=== PATIENT | female | born 1955 | race Caucasian/White ===

== ENCOUNTER → 2019-08-14 08:53 | Outpatient (BNVA) | payer MEDICARE, MEDICAID, SELFPAY | PROVIDERS: Family Provider Family Medicine; PCP Family Medicine; Visit Provider Nurse Practitioner | DX: F33.2 Major depressive disorder, recurrent severe without psychotic features (principal); R41.83 Borderline intellectual functioning; F42.3 Hoarding disorder | CPT/HCPCS: 99214 ==

== ENCOUNTER → 2019-08-23 12:00 | Outpatient (BNVA) | payer MEDICARE, MEDICAID, SELFPAY | PROVIDERS: Family Provider Family Medicine; PCP Family Medicine; Visit Provider Nurse Practitioner Family | DX: E78.5 Hyperlipidemia, unspecified (principal); K21.9 Gastro-esophageal reflux disease without esophagitis; F42.3 Hoarding disorder; R41.83 Borderline intellectual functioning; F33.2 Major depressive disorder, recurrent severe without psychotic features; J01.90 Acute sinusitis, unspecified | CPT/HCPCS: 80053; 80061; 81003; 85025 ==

== ENCOUNTER 2019-09-17 11:27 | Outpatient (CLI) | payer MEDICARE, MEDICAID, SELFPAY ==
--- NOTE | 2019-09-17 11:29 | MM_ITS ---
WS: [id number] Bilateral diagnostic digital mammogram, 09/17/2019 Clinical Data: HX OF BREAST CA Comparison: 10/24/2017, 09/28/2016, 04/14/2015, 01/29/2013, 09/18/2010, 05/21/2009. Findings: There is a spiculated density in the upper aspect of the right breast seen best on the RML view. This is not well defined on the MLO or the cc view. There are post treatment changes in the left breast w ith loss of breast volume and thickening of the overlying skin. There are large benign calcifications in the central left breast. Both breasts show heterogeneous density. MM/[place] [id number] Impression: 1. Recommend compression view of the right breast in the CC and ML projections along with ultrasound of the superior aspect of the right breast. 2. No change in the left breast from previous studies. BIRADS: 0-Incomplete: Need additional imaging evaluation FOLLOW UP: 1 Month Follow-up The CAD wrapping checker was used.
== END 2019-09-17 11:28 | disposition home or self-care (01) ==
LOC: RADSHAW 11:27
PROVIDERS: Family Provider Family Medicine; PCP Nurse Practitioner Family; Visit Provider Nurse Practitioner Family
DX: Z85.3 Personal history of malignant neoplasm of breast (principal)
CPT/HCPCS: 77066

== ENCOUNTER 2019-10-11 08:25 | Outpatient (CLI) | payer MEDICARE, MEDICAID, SELFPAY ==
--- NOTE | 2019-10-11 08:30 | MM_ITS ---
WS: [id number] ADDITIONAL VIEWS RIGHT BREAST RIGHT breast ultrasound, limited HISTORY: abnormal mammogram COMPARISON: 09/17/2019, 10/24/2017 and 09/28/2016 Compression views right CC and MLO projection. True ML also submitted. Mild asymmetry in the central posterior RIGHT breast persists. The spiculated nodule on the prior study nearly completely resolves and the soft tissues become nearly similar to the studies from 2017. RIGHT breast ultrasound, limited. Ultrasound is directed to the upper outer quadrant of the RIGHT javier ast and to focus on 12:00. There is a bandlike area of dense fibroglandular tissue. No mass or distor tion. No solid or cystic changes. MM/[place] [id number] IMPRESSION: BI-RADS: 2-Benign FOLLOW-UP: 1 Year Follow-up
--- NOTE | 2019-10-11 09:30 | US_ITS ---
WS: [id number] ADDITIONAL VIEWS RIGHT BREAST RIGHT breast ultrasound, limited HISTORY: abnormal mammogram COMPARISON: 09/17/2019, 10/24/2017 and 09/28/2016 Compression views right CC and MLO projection. True ML also submitted. Mild asymmetry in the central posterior RIGHT breast persists. The spiculated nodule on the prior study nearly completely resolves and the soft tissues become nearly similar to the studies from 2017. RIGHT breast ultrasound, limited. Ultrasound is directed to the upper outer quadrant of the RIGHT javier ast and to focus on 12:00. There is a bandlike area of dense fibroglandular tissue. No mass or distor tion. No solid or cystic changes. US/US breast RT limited* [id number] IMPRESSION: BI-RADS: 2-Benign FOLLOW-UP: 1 Year Follow-up
== END 2019-10-11 08:26 | disposition home or self-care (01) ==
LOC: RADSHAW 08:25
PROVIDERS: Family Provider Family Medicine; PCP Nurse Practitioner Family; Visit Provider Nurse Practitioner Family
DX: R92.8 Other abnormal and inconclusive findings on diagnostic imaging of breast (principal)
CPT/HCPCS: 76642; 77065

== ENCOUNTER → 2019-11-07 08:33 | Outpatient (BNVA) | payer MEDICARE, MEDICAID, SELFPAY | PROVIDERS: Family Provider Family Medicine; PCP Nurse Practitioner Family; Visit Provider Nurse Practitioner | DX: F33.2 Major depressive disorder, recurrent severe without psychotic features (principal); R41.83 Borderline intellectual functioning | CPT/HCPCS: 99213 ==

== ENCOUNTER → 2020-01-08 16:32 | Outpatient (BNVA) | payer MEDICARE, MEDICAID, SELFPAY | PROVIDERS: PCP Nurse Practitioner Family; Visit Provider Nurse Practitioner Family | DX: G25.81 Restless legs syndrome (principal); E78.5 Hyperlipidemia, unspecified; M25.561 Pain in right knee; M25.562 Pain in left knee; G89.29 Other chronic pain; R29.6 Repeated falls; R35.0 Frequency of micturition; R60.9 Edema, unspecified; Z79.899 Other long term (current) drug therapy | CPT/HCPCS: 80053; 80061; 81003; 82306; 82607; 82728; 85025; 87086 ==

== ENCOUNTER → 2020-02-18 11:30 | Outpatient (BNVA) | payer MEDICARE, MEDICAID, SELFPAY | PROVIDERS: PCP Nurse Practitioner Family; Visit Provider Nurse Practitioner Family | DX: R74.8 Abnormal levels of other serum enzymes (principal) | CPT/HCPCS: 82607; 82728; 85025 ==

== ENCOUNTER → 2020-02-28 16:15 | Outpatient (BNVA) | payer MEDICARE, MEDICAID, SELFPAY | PROVIDERS: PCP Nurse Practitioner Family; Visit Provider Nurse Practitioner Family | DX: E78.5 Hyperlipidemia, unspecified (principal); R74.8 Abnormal levels of other serum enzymes | CPT/HCPCS: 85025 ==

== ENCOUNTER → 2020-02-29 08:24 | Outpatient (BNVA) | payer MEDICARE, MEDICAID, SELFPAY | PROVIDERS: PCP Nurse Practitioner Family; Visit Provider Nurse Practitioner | DX: F33.2 Major depressive disorder, recurrent severe without psychotic features (principal); R41.83 Borderline intellectual functioning | CPT/HCPCS: 99214 ==

== ENCOUNTER → 2020-03-04 10:41 | Outpatient (BNVA) | payer MEDICARE, MEDICAID, SELFPAY | PROVIDERS: PCP Nurse Practitioner Family; Visit Provider Nurse Practitioner Family | DX: E87.1 Hypo-osmolality and hyponatremia (principal) | CPT/HCPCS: 80048 ==

== ENCOUNTER 2020-03-16 13:51 | Emergency (ER) | payer MEDICARE, MEDICAID, SELFPAY ==
[2020-03-16 14:04] VITALS: BP 112/59; PULSE 72; RESP 16; TEMP 36.3; O2SAT 96; BMI 27.4
--- NOTE | 2020-03-16 14:27 | XRR_ITS ---
PROCEDURE INFORMATION: Exam: XR Chest, 1 View Exam date and time: 03/16/2020 2:28 PM Age: 64 years old Clinical indication: Cough and dyspnea and fever; Additional info: Dyspnea, fever, cough TECHNIQUE: Imaging protocol: XR of the chest Views: 1 view. COMPARISON: CR Chest 1 [place] [id number] 03/16/2019 12:15 PM FINDINGS: Lungs: Unremarkable. No consolidation. Pleural space: Unremarkable. No pleural effusion. No pneumothorax. Heart/Mediastinum: Unremarkable. No cardiomegaly. Bones/joints: Unremarkable. XR/XR chest 1V portable [id number] IMPRESSION: No acute findings.
[2020-03-16 14:56] LABS: Basophils % 0.3 %; Eosinophils % 0.2 %; Hematocrit 32.9 % (37.0-47.0); Lymphocytes # 0.8 10^3/uL (0.8-4.8); Mean Corpuscular HGB Conc 33.4 g/dL (30.0-36.0); Mean Corpuscular Hemoglobin 33.6 pg (28.0-34.0); Mean Corpuscular Volume 100.6 fL (81-99); Mean Platelet Volume 8.1 fL (7.4-10.4); Monocytes # 0.9 10^3/uL (0.2-0.9); Monocytes % 14.9 %; Neutrophils # 4.51 10^3/uL (1.8-7.7); Neutrophils % 72.3 %; Nucleated Red Blood Cells % 0 %; Platelet Count 150 10^3/cmm (130-400); Red Blood Count 3.27 10^6/uL (4.1-5.3); Red Cell Distribution Width 13.1 % (12.1-15.1); White Blood Count 6.2 10^3/uL (4.0-10.0)
--- NOTE | 2020-03-16 14:58 | W.ED.GENADLT ---
HPI - General Adult General: Chief complaint: General Medical Stated complaint: POSS COVID Time Seen by Provider: 03/16/20 14:12 History of Present Illness: HPI narrative: This patient is a 64-year-old female who presents today with cough, fever, body aches, diarrhea. She has developmental delays and intellectual disabilities and lives in an IR with a roommate. The staff member came this morning and found her to be complaining of feeling poorly. The symptoms mostly started this morning but she did complain of muscle aches last night before bedtime. She had a dose of Tylenol at about 745 when her temperature was 102.8. There is no known exposures to COVID. She also has had other medical history including different types of cancer, ear problems, reflux. She is here today with her newspaper or periodical editor and her sister who is her guardian was on the phone with us as well. Onset (ago): day(s) (1) Associated symptoms: Reports dyspnea, malaise and nausea; Deny chest pain, headache(s), rash or vomiting Review of Systems General: Reports: 10 or more systems reviewed and unremarkable except in HPI and below Const: Reports: fever(s), chills, fatigue and malaise Eyes: Denies: change in vision ENMT: Denies: odynophagia Card: Denies: chest pain or swelling of feet/ankles Resp: Reports: dyspnea and non-productive cough GI: Reports: nausea and diarrhea; Denies: abdominal pain or vomiting : Denies: flank pain or difficulty voiding Musc: Denies: neck pain or back pain Skin/Breast: Denies: rash Neuro: Denies: headache(s), numbness in extremities or weakness in extremities Hayder/Lymph: Denies: easy bruising or easy bleeding PFSH ED PFSH: Medical History Anxiety Basal cell carcinoma Borderline intellectual functioning GERD (gastroesophageal reflux disease) Hoarding disorder Hyperlipemia Intermittent explosive disorder Intraductal carcinoma in situ Kidney stones Major depressive disorder, recurrent severe without psychotic features Malignant neoplasm of kidney Postmenopausal Psychiatric disorder Schatzki's ring Vaginal atrophy Vitamin D deficiency Surgical History History of nephrectomy, right Family History Father Dementia Parkisons CAD (coronary artery disease) Diabetes Mother CAD (coronary artery disease) Social History Smoking and tobacco status: never smoked Second hand smoke exposure: No Alcohol intake: never Lives independently: No Household members: caregiver Housing: Other Details: [facility] Marital status: Single Current occupational status: disabled Current occupational exposures/hazards: No History of recent travel: No Current gender identity: Female Physical Exam Const: COMMON NORMALS: no acute distress, patient oriented x3, no limitations and alert GENERAL APPEARANCE: cooperative and comfortable HENMT: HEAD & SCALP: normal to inspection FACE & SINUS: normal facial exam Eye: GENERAL EYE: appearance normal, both eyes and all related structures Neck/C-Spine: COMMON NORMALS: supple, no meningeal signs and no JVD Chest: COMMONS NORMALS: normal inspection of the chest Resp: COMMON NORMALS: normal respiratory effort, No use of accessory muscles and clear to auscultation bilaterally AUSCULTATION: clear to auscultation bilaterally Cardio: COMMON NORMALS: no JVD, regular rate, regular rhythm and No murmurs present (Cardio) RATE: regular rate RHYTHM: regular rhythm GI: COMMON NORMALS: Normal to inspection, nondistended, normoactive bowel sounds present, Soft to palpation and non-tender INSPECTION: Yes normal to inspection AUSCULTATION: Yes normoactive bowel sounds PALPATION: Yes Soft to palpation Back/Pelvis: COMMON NORMALS: thoracic and lumbar spine normal to inspection Extremity: COMMON NORMALS: normal to inspection Neuro: COMMON NORMALS: patient oriented x3, moves all extremities, no focal motor deficits and no sensory deficits noted SENSORIUM/ORIENTATION: Yes alert MENINGEAL SIGNS: Yes no meningeal signs Psych: COMMON NORMALS: mental status grossly normal, cooperative and normal affect Skin: COMMON NORMALS: no rashes or lesions noted and turgor normal GENERAL SKIN EXAM: no rashes or lesions noted and turgor normal Course ED course: Patient does have symptoms which are concerning for COVID. Her room air sat is 97%. She does not appear dyspneic. Her main complaint is muscle aches. She was afebrile at triage but it is been a while since she had her first dose of Tylenol today and I will give her another for her muscle aches. Chest x-ray and labs are pending. Do not think she is going to need to be admitted some doing a quest send out test for COVID. She, her roommate and the staff members who have cared for her will need to self quarantine until that is back. Vital Signs: Vital signs: Vital Signs Temperature 97.3 F L 03/16/20 14:04 Pulse Rate 70 03/16/20 16:23 Respiratory Rate 15 03/16/20 16:23 Blood Pressure 110/75 03/16/20 16:23 Pulse Oximetry 97 03/16/20 16:23 MDM - General Adult Lab Data: Labs: Lab Results 03/16/20 03/16/20 03/16/20 Range/Units 14:47 14:47 14:47 WBC 6.2 (4.0-10.0) 10^3/ uL RBC 3.27 L (4.1-5.3) 10^6/u L Hgb 11.0 L (11.5-15.3) g/dL Hct 32.9 L (37.0-47.0) % MCV 100.6 H (81-99) fL MCH 33.6 (28.0-34.0) pg MCHC 33.4 (30.0-36.0) g/dL RDW 13.1 (12.1-15.1) % Plt Count 150 (130-400) 10^3/c mm MPV 8.1 (7.4-10.4) fL Neut % (Auto) 72.3 % Lymph % (Auto) 12.0 % King % (Auto) 14.9 % Eos % (Auto) 0.2 % Baso % (Auto) 0.3 % Neut # (Auto) 4.51 (1.8-7.7) 10^3/u L Lymph # (Auto) 0.8 (0.8-4.8) 10^3/u L King # (Auto) 0.9 (0.2-0.9) 10^3/u L Eos # (Auto) 0.0 (0.0-0.8) 10^3/u L Baso # (Auto) 0.0 (0.0-0.1) 10^3/u L Nucleated RBC % (a uto) 0 % Nucleated RBCs # 0.0 /100WBC D-Dimer 0.82 H (0-0.59) ug/mIFE U Sodium 131 L (136-145) mmol/L Potassium 3.7 (3.5-5.1) mmol/L Chloride 96 L (98-107) mmol/L Carbon Dioxide 25 (22-29) mmol/L Anion Gap 13.7 (5-19) BUN 19 (8-23) mg/dL Creatinine 0.8 (0.5-0.9) mg/dL GFR Calculation 71.8 L (90-130) mL/min Glucose 110 (65-115) mg/dL Calculated Osmolal ity 269 L (285-295) mOsm/k g Calcium 8.2 L (8.5-10.5) mg/dL Total Bilirubin 0.2 (0.15-1.2) mg/dL AST 21 (0-32) U/L ALT 22 (0-33) U/L Alkaline Phosphata se 62 (35-105) IU/L C-Reactive Protein 42.4 H (0.0-4.9) mg/L Total Protein 6.0 L (6.6-8.7) g/dL Albumin 3.7 (3.5-5.2) g/dL Globulin 2.3 (1.3-4.6) g/dL Procalcitonin 0.10 (0-0.5) ng/mL Urine Color (Yellow) Urine Appearance (CLEAR) Urine pH (5-7) Ur Specific Gravit y (1.005-1.030) Urine Protein (Negative) Urine Glucose (UA) (Normal) Urine Ketones (Negative) Urine Blood (Negative) Urine Nitrate (Negative) Urine Bilirubin (Negative) Urine Urobilinogen (Negative) mg/dL Ur Leukocyte Richelle ase (Negative) Urine RBC (0-2) /hpf Urine WBC (0-5) /hpf Ur Squamous Epith Cells (0-5) /hpf Amorphous Sediment Urine Bacteria (NONE) /hpf 03/16/20 Range/Units 15:04 WBC (4.0-10.0) 10^3/ uL RBC (4.1-5.3) 10^6/u L Hgb (11.5-15.3) g/dL Hct (37.0-47.0) % MCV (81-99) fL MCH (28.0-34.0) pg MCHC (30.0-36.0) g/dL RDW (12.1-15.1) % Plt Count (130-400) 10^3/c mm MPV (7.4-10.4) fL Neut % (Auto) % Lymph % (Auto) % King % (Auto) % Eos % (Auto) % Baso % (Auto) % Neut # (Auto) (1.8-7.7) 10^3/u L Lymph # (Auto) (0.8-4.8) 10^3/u L King # (Auto) (0.2-0.9) 10^3/u L Eos # (Auto) (0.0-0.8) 10^3/u L Baso # (Auto) (0.0-0.1) 10^3/u L Nucleated RBC % (a uto) % Nucleated RBCs # /100WBC D-Dimer (0-0.59) ug/mIFE U Sodium (136-145) mmol/L Potassium (3.5-5.1) mmol/L Chloride (98-107) mmol/L Carbon Dioxide (22-29) mmol/L Anion Gap (5-19) BUN (8-23) mg/dL Creatinine (0.5-0.9) mg/dL GFR Calculation (90-130) mL/min Glucose (65-115) mg/dL Calculated Osmolal ity (285-295) mOsm/k g Calcium (8.5-10.5) mg/dL Total Bilirubin (0.15-1.2) mg/dL AST (0-32) U/L ALT (0-33) U/L Alkaline Phosphata se (35-105) IU/L C-Reactive Protein (0.0-4.9) mg/L Total Protein (6.6-8.7) g/dL Albumin (3.5-5.2) g/dL Globulin (1.3-4.6) g/dL Procalcitonin (0-0.5) ng/mL Urine Color Yellow (Yellow) Urine Appearance Clear (CLEAR) Urine pH 7 (5-7) Ur Specific Gravit y 1.005 (1.005-1.030) Urine Protein Neg (Negative) Urine Glucose (UA) Norm (Normal) Urine Ketones Negative (Negative) Urine Blood 2+ H (Negative) Urine Nitrate Negative (Negative) Urine Bilirubin Neg (Negative) Urine Urobilinogen Norm (Negative) mg/dL Ur Leukocyte Irchelle ase Negative (Negative) Urine RBC 0-4 H (0-2) /hpf Urine WBC None (0-5) /hpf Ur Squamous Epith Cells Rare (0-5) /hpf Amorphous Sediment Not Reportable Urine Bacteria Trace (NONE) /hpf Discharge Plan Discharge Patient Disposition: Home Clinical Impression: Upper respiratory infection, viral, COVID-19 virus test result unknown Condition: Stable Prescriptions: No Action PrePlus 27 mg iron- 1 mg tablet 1 tab PO QDAY RF: 0 polyethylene glycol 3350 [Miralax] 17 gram powder in packet 17 gm PO QDAY RF: 0 (DME) comp.stocking,knee,long,medium Misc See Rx Instructions .ROUTE .MEDSUPPLY Qty: 1 RF: 0 pantoprazole [Protonix] 40 mg tablet,delayed release (DR/EC) 40 mg PO QDAY Qty: 30 RF: 5 atorvastatin 20 mg tablet 20 mg PO QDAY Qty: 30 RF: 5 acetaminophen 500 mg tablet 500 mg PO Q6H PRN (Reason: fever or pain) Qty: 120 RF: 3 cholecalciferol (vitamin D3) 25 mcg (1,000 unit) capsule 2,000 unit PO QDAY Qty: 60 RF: 5 ropinirole 1 mg tablet See Rx Instructions .ROUTE .COMPLEX Qty: 90 RF: 5 meloxicam 15 mg tablet See Rx Instructions .ROUTE .COMPLEX Qty: 30 RF: 5 fluoxetine 40 mg capsule 40 mg PO QAM Qty: 30 RF: 2 lorazepam 0.5 mg tablet 0.25 mg PO TID Qty: 45 RF: 2 oxcarbazepine 150 mg tablet 150 mg PO BID Qty: 60 RF: 2 potassium citrate 10 mEq (1,080 mg) Tablet Extended Release 10 meq PO BID RF: 0 diclofenac sodium 1 % gel See Rx Instructions .ROUTE .COMPLEX RF: 0 [place] D See Rx Instructions .ROUTE .COMPLEX RF: 0 Discharge Orders: Discharge Order (Routine); Ordered 03/16/20 Ordered By: Lisa Duran Referrals: Susan Espinal FNP [Primary Care Provider] - Discharge Diet: Usual diet Discharge Activity: Resume usual activity Patient Instructions: Upper Respiratory Infection (ED) Activity Restrictions/Additional Instructions: Continue Tylenol for fever and body aches. Return to the emergency department if increasing shortness of breath, vomiting, changes in behavior or any other new or concerning symptoms. The COVID test will take a few days to result. Someone will contact you whether it is positive or negative. You and anyone has had contact with you recently should self quarantine until the results of the test are available. Discharge Date/Time: 03/16/20 16:24 Coding Level of Care Code ED Clinic Office Assistant for [place] Fwd Exam Comprehensive
[2020-03-16 15:22] LABS: D Dimer 0.82 ug/mIFEU (0-0.59)
[2020-03-16 15:26] LABS: Add Urine Microscopic? YES; Bilirubin Urine Neg (Negative); Blood Urine 2+ (Negative); Glucose Urine UA Norm (Normal); Ketones Urine Negative (Negative); Leukocyte Esterase Urine Negative (Negative); Nitrate Urine Negative (Negative); Protein Urine Neg (Negative); Specific Gravity, Urine 1.005 (1.005-1.030); Urine Appearance Clear (CLEAR); Urine Color Yellow (Yellow); Urobilinogen Urine Norm (Negative); pH Urine 7 (5-7)
[2020-03-16 15:28] LABS: Add Urine Culture? No; Bacteria Urine TRACE /hpf; RBC Urine 0-4 /hpf (0-2); Squamous Epithelial Cell Urine RARE /hpf (0-5)
[2020-03-16 15:43] LABS: Alanine Aminotransferase 22 U/L (0-33); Albumin Level 3.7 g/dL (3.5-5.2); Alkaline Phosphatase 62 IU/L (35-105); Anion Gap 13.7 (5-19); Aspartate Amino Transferase 21 U/L (0-32); Blood Urea Nitrogen 19 mg/dL (8-23); C Reactive Protein 42.4 mg/L (0.0-4.9); Calcium 8.2 mg/dL (8.5-10.5); Carbon Dioxide 25 mmol/L (22-29); Chloride 96 mmol/L (98-107); Globulin 2.3 g/dL (1.3-4.6); Glomerular Filtration Rate 71.8 mL/min (90-130); Glucose 110 mg/dL (65-115); Osmolality Calculated 269 mOsm/kg (285-295); Potassium 3.7 mmol/L (3.5-5.1); Sodium 131 mmol/L (136-145); Total Bilirubin 0.2 mg/dL (0.15-1.2)
[2020-03-16 16:23] VITALS: BP 110/75; PULSE 70; RESP 15; O2SAT 97
[2020-03-17 19:32] LABS: Quest SARS-CoV-2 RNA DETECTED (NOT DETECTED)
== END 2020-03-16 16:24 | disposition home or self-care (01) ==
PROVIDERS: Emergency Provider Emergency Medicine; PCP Nurse Practitioner Family
DX: U07.1 COVID-19 (principal); E78.5 Hyperlipidemia, unspecified; Z85.528 Personal history of other malignant neoplasm of kidney; Z90.5 Acquired absence of kidney
CPT/HCPCS: 12345; 36415; 51701; 71045; 80053; 81001; 84145; 85025; 85378; 86140; 87635; 99282; 99283

== ENCOUNTER 2020-04-10 16:41 | Emergency (ER) | payer MEDICARE, MEDICAID, SELFPAY ==
[2020-04-10 16:47] VITALS: BP 110/73; PULSE 73; RESP 16; TEMP 36.8; O2SAT 96; BMI 21.9
[2020-04-10 18:04] LABS: Add Urine Microscopic? YES; Bilirubin Urine Neg (Negative); Blood Urine Neg (Negative); Glucose Urine UA Norm (Normal); Ketones Urine Negative (Negative); Leukocyte Esterase Urine 2+ (Negative); Nitrate Urine Negative (Negative); Protein Urine Neg (Negative); Urine Color Yellow (Yellow); Urobilinogen Urine Neg (Negative); pH Urine 7 (5-7)
[2020-04-10 18:10] LABS: WBC Urine 15-25 /hpf (0-5)
[2020-04-10 18:11] LABS: Add Urine Culture? Yes; Bacteria Urine 1+ /hpf; Squamous Epithelial Cell Urine 0-4 /hpf (0-5); Transitional Epi Cells Urine 0-4 /hpf
--- NOTE | 2020-04-10 18:16 | ED_ITS ---
HPI - Abdominal Pain General: Chief Complaint: Abdominal Pain Stated Complaint: Abdominal Pain Time Seen by Provider: 04/10/20 18:16 History of Present Illness: HPI narrative: Patient is a 64-year-old female comes to the ED with lower abdominal pain. Symptoms started today. Patient has a past medical history of basal cell carcinoma, GERD, hyperlipidemia, kidney stones, intraductal carcinoma in situ. Past surgical history of right nephrectomy and right breast lumpectomy. Patient says she has not had a bowel movement 2 days. She rates the pain is severe and it is intermittent. Pain is located in the lower abdomen bilaterally. Denies fever, chills, vomiting, dysuria, or hematuria. Associated Symptoms: Reports constipation and nausea; Denies chills, diarrhea, dysuria, fever(s), hematochezia, hematuria and vomiting Review of Systems Const: Denies: fever(s), chills or fatigue Eyes: Denies: change in vision or eye discomfort ENMT: Denies: throat pain, odynophagia, nasal discharge or nasal congestion Card: Denies: chest pain, palpitations, edema, swelling of feet/ankles, dyspnea on exertion or orthopnea Resp: Denies: dyspnea, productive cough or non-productive cough GI: Reports: abdominal pain, nausea and constipation; Denies: vomiting, diarrhea or hematochezia : Denies: flank pain, dysuria or hematuria Musc: Denies: neck pain, back pain or extremity swelling Skin/Breast: Denies: rash or new lesions Neuro: Denies: headache(s), numbness in extremities or weakness in extremities PFS ED PFSH: Medical History Anxiety Basal cell carcinoma Borderline intellectual functioning Elevated vitamin B12 level GERD (gastroesophageal reflux disease) Hoarding disorder Hyperlipemia Intermittent explosive disorder Intraductal carcinoma in situ Kidney stones Major depressive disorder, recurrent severe without psychotic features Malignant neoplasm of kidney Postmenopausal Psychiatric disorder Schatzki's ring Vaginal atrophy Vitamin D deficiency Surgical History History of basal cell carcinoma (BCC) excision (~2009) History of ear surgery History of lumpectomy of right breast (~2006) History of nephrectomy, right Hx of breast surgery (~2005) Left Hx of endoscopy (~2006) Hx of hernia repair (~11/2018) Hx of laparoscopy (~2009) Hx of lithotripsy (~2007) Family History Father Dementia Park[place] CAD (coronary artery disease) Diabetes Mother CAD (coronary artery disease) Social History Smoking and tobacco status: never smoked Second hand smoke exposure: No Alcohol intake: never Lives independently: No Household members: caregiver Housing: Other Details: care home Marital status: Single Current occupational status: disabled Current occupational exposures/hazards: No History of recent travel: No Current gender identity: Female Physical Exam Const: COMMON NORMALS: patient oriented x3 and alert EXAM LIMITATIONS: other limitations (Limited mental capacity) GENERAL APPEARANCE: cooperative and in distress (Patient is hunched over and groaning intermittently due to abdominal pain) HENMT: COMMON NORMALS: normocephalic HEAD & SCALP: normocephalic MOUTH: Normal oral and palatal mucosa present THROAT: posterior oropharynx normal and uvula midline Neck/C-Spine: COMMON NORMALS: supple GENERAL: Yes normal visual inspection Resp: COMMON NORMALS: normal respiratory effort, No retractions, No use of accessory muscles and clear to auscultation bilaterally AUSCULTATION: clear to auscultation bilaterally Cardio: COMMON NORMALS: regular rate, regular rhythm, S1 normal heart sound present, S2 normal heart sound present, No gallops present (Cardio), No clicks present (Cardio), No murmurs present (Cardio) and Peripheral pulses 2+ throughout RATE: regular rate RHYTHM: regular rhythm HEART SOUNDS: S1 normal heart sound present and S2 normal heart sound present PERIPHERAL PULSES: Peripheral pulses 2+ throughout GI: COMMON NORMALS: Normal to inspection, nondistended, normoactive bowel sounds present, Soft to palpation and no masses PALPATION: Yes Soft to palpation and Yes Tenderness to palpation present (GI) (Patient having moderate to severe tenderness to light palpation) Details: LLQ and RLQ : COMMON NORMALS: Yes no CVA tenderness BLADDER/KIDNEY EXAM: Yes no CVA tenderness Back/Pelvis: COMMON NORMALS: no CVA tenderness Extremity: COMMON NORMALS: normal to inspection and no pedal edema Neuro: COMMON NORMALS: patient oriented x3 SENSORIUM/ORIENTATION: Yes alert GAIT: Yes Normal gait present Skin: GENERAL SKIN EXAM: dry skin Course Vital Signs: Vital signs: Vital Signs Temperature 98.3 F 04/10/20 16:47 Pulse Rate 73 04/10/20 16:47 Respiratory Rate 18 04/10/20 19:50 Blood Pressure 110/73 04/10/20 16:47 Pulse Oximetry 97 04/10/20 19:50 MDM - Abdominal Pain MDM Narrative: Medical decision making narrative: Patient is a 64-year-old female comes to the ED with intermittent lower abdominal pain. She has not had a bowel movement in 2 days. Physical exam shows some bilateral lower abdominal tenderness to palpation. CBC, UA and CMP were unremarkable. Lipase 52. CT of the abdomen showed no acute findings but did notate a lot of stool in the colon compatible with constipation. Patient was discharged and diagnosed with con stipation and sent home with some magnesium citrate. She was also sent home with a prescription for MiraLAX to use as needed for constipation. She was instructed to drink a lot of fluids to stay hydrated. Follow-up with PCP in 7 to 10 days. Return to ED precautions given. Lab Data: Attestation: I reviewed the patient's lab results. Labs: Lab Results 04/10/20 04/10/20 04/10/20 Range/Units 17:39 18:46 18:46 WBC 5.4 (4.0-10.0) 10^3/ uL RBC 3.99 L (4.1-5.3) 10^6/u L Hgb 13.0 (11.5-15.3) g/dL Hct 39.8 (37.0-47.0) % MCV 99.7 H (81-99) fL MCH 32.6 (28.0-34.0) pg MCHC 32.7 (30.0-36.0) g/dL RDW 12.6 (12.1-15.1) % Plt Count 220 (130-400) 10^3/c mm MPV 8.1 (7.4-10.4) fL Neut % (Auto) 67.0 % Lymph % (Auto) 20.7 % [place] % (Auto) 10.2 % Eos % (Auto) 1.3 % Baso % (Auto) 0.6 % Neut # (Auto) 3.63 (1.8-7.7) 10^3/u L Lymph # (Auto) 1.1 (0.8-4.8) 10^3/u L [place] # (Auto) 0.6 (0.2-0.9) 10^3/u L Eos # (Auto) 0.1 (0.0-0.8) 10^3/u L Baso # (Auto) 0.0 (0.0-0.1) 10^3/u L Nucleated RBC % (a uto) 0 % Nucleated RBCs # 0.0 /100WBC Sodium 134 L (136-145) mmol/L Potassium 4.3 (3.5-5.1) mmol/L Chloride 97 L (98-107) mmol/L Carbon Dioxide 24 (22-29) mmol/L Anion Gap 17.3 (5-19) BUN 25 H (8-23) mg/dL Creatinine 0.9 (0.5-0.9) mg/dL GFR Calculation 62.6 L (90-130) mL/min Glucose 107 (65-115) mg/dL Calculated Osmolal ity 283 L (285-295) mOsm/k g Calcium 9.9 (8.5-10.5) mg/dL Total Bilirubin 0.3 (0.15-1.2) mg/dL AST 18 (0-32) U/L ALT 20 (0-33) U/L Alkaline Phosphata se 87 (35-105) IU/L Total Protein 7.2 (6.6-8.7) g/dL Albumin 4.3 (3.5-5.2) g/dL Globulin 2.9 (1.3-4.6) g/dL Lipase 52 (13-60) U/L Urine Color Yellow (Yellow) Urine Appearance Sl cloudy A (CLEAR) Urine pH 7 (5-7) Ur Specific Gravit y 1.010 (1.005-1.030) Urine Protein Neg (Negative) Urine Glucose (UA) Norm (Normal) Urine Ketones Negative (Negative) Urine Blood Neg (Negative) Urine Nitrate Negative (Negative) Urine Bilirubin Neg (Negative) Urine Urobilinogen Neg (Negative) mg/dL Ur Leukocyte Richelle ase 2+ H (Negative) Urine RBC None (0-2) /hpf Urine WBC 15-25 H (0-5) /hpf Ur Squamous Epith Cells 0-4 H (0-5) /hpf Ur Transition Epit h Cell 0-4 /hpf Amorphous Sediment Not Reportable Urine Bacteria 1+ H (NONE) /hpf Imaging Data ^: CT Abd/Pel: Attestation: I personally reviewed and interpreted this imaging study as follows: Radiologist's impression: [facility] [address] [place] [address] CT Scan Report Signed Patient: Sherie Mora Unit #: [id number] : 1955 Age/Sex: 64 / F ADM Date: 04/10/20 Loc: ER Room/Bed: Attending Dr: Ordering Provider/Ordering MD: Crow Lock Date of Service: 04/10/20 Procedure(s): CT abdomen pelvis wo con [id number] Accession Number(s): [id number] Report Number: [id number] PROCEDURE INFORMATION: Exam: CT Abdomen And Pelvis Without Contrast Exam date and time: 04/10/2020 6:53 PM Age: 64 years old Clinical indication: Abdominal pain; Prior surgery; Surgery type: RT nephrectomy, lithotripsy, hernia; Additional info: Lower abdominal pain TECHNIQUE: Imaging protocol: Computed tomography of the abdomen and pelvis without contrast. Radiation optimization: All CT scans at this facility use at least one of these dose optimization techniques: automated exposure control; mA and/or kV adjustment per patient size (includes targeted exams where dose is matched to clinical indication); or iterative reconstruction. COMPARISON: CR XR KUB [id number] 06/12/2019 3:48 PM RADIATION DOSE METRICS: Total DLP (mGy-cm): 453.91 FINDINGS: Mediastinal space: A small hiatal hernia is present. Liver: Unremarkable.No mass. Gallbladder and bile ducts: Normal. No calcified stones. No ductal dilation. Pancreas: Normal. No ductal dilation. Spleen: Normal. No splenomegaly. Adrenals: Normal. No mass. Kidneys and ureters: Postoperative changes of a right nephrectomy are noted. There is punctate left nephrolithiasis. No left hydronephrosis or obstructing calculus left ureter. Stomach and bowel: There is moderately excessive colonic stool content. There is no evidence of intestinal perforation or obstruction. There is no evidence of colitis/diverticulitis. Appendix: A normal appendix is identified. Intraperitoneal space: Unremarkable. No free air. No significant fluid collection. Vasculature: Unremarkable.No abdominal aortic aneurysm. Lymph nodes: Unremarkable.No enlarged lymph nodes. Urinary bladder: There is nonspecific bladder wall thickening. This may be related to incomplete distention. Reproductive: Uterus is enlarged and lobulated in contour with several calcified uterine fibroids. The ovaries/adnexa are unremarkable. Bones/joints: Unremarkable. No acute fracture. Soft tissues: Unremarkable. CT/CT abdomen pelvis wo con [id number] IMPRESSION: 1. No bowel thickening or inflammatory changes. No hydronephrosis left kidney. Postoperative right nephrectomy. 2. There is abundant colonic stool compatible with constipation. Radiation Dose CTDIVOL = (mGy): DLP = 453.91 (mGy-cm) Dictated By: Seema Juarez Signed By: Seema Juarez Signed Date/Time: 04/10/201932 DD/ 31 Discharge Plan Discharge Patient Disposition: Home Clinical Impression: Constipation Qualifiers: Constipation type: slow transit constipation Qualified Code(s): K59.01 - Slow transit constipation Condition: Stable Prescriptions: New Miralax 17 gram/dose powder 17 gm PO DAILY PRN (Reason: constipation) Qty: 119 RF: 0 No Action PrePlus 27 mg iron- 1 mg tablet 1 tab PO QDAY RF: 0 polyethylene glycol 3350 [Miralax] 17 gram powder in packet 17 gm PO QDAY RF: 0 (DME) comp.stocking,knee,long,medium Misc See Rx Instructions .ROUTE .MEDSUPPLY Qty: 1 RF: 0 cholecalciferol (vitamin D3) 25 mcg (1,000 unit) capsule 2,000 unit PO QDAY Qty: 60 RF: 5 ropinirole 1 mg tablet See Rx Instructions .ROUTE .COMPLEX Qty: 90 RF: 5 meloxicam 15 mg tablet See Rx Instructions .ROUTE .COMPLEX Qty: 30 RF: 5 fluoxetine 40 mg capsule 40 mg PO QAM Qty: 30 RF: 2 lorazepam 0.5 mg tablet 0.25 mg PO TID Qty: 45 RF: 2 oxcarbazepine 150 mg tablet 150 mg PO BID Qty: 60 RF: 2 promethazine-DM 6.25-15 mg/5 mL syrup 5 ml PO Q6H PRN (Reason: cough) Qty: 180 RF: 0 acetaminophen 500 mg tablet 1,000 mg PO Q6H PRN (Reason: fever or pain) Qty: 120 RF: 3 atorvastatin 20 mg tablet See Rx Instructions .ROUTE .COMPLEX Qty: 30 RF: 3 pantoprazole 40 mg tablet,delayed release (DR/EC) See Rx Instructions .ROUTE .COMPLEX Qty: 30 RF: 3 potassium citrate 10 mEq (1,080 mg) tablet extended release 10 meq PO BID Qty: 60 RF: 5 diclofenac sodium 1 % gel See Rx Instructions .ROUTE .COMPLEX RF: 0 Oysco D See Rx Instructions .ROUTE .COMPLEX RF: 0 Discharge Orders: Discharge Order (Routine); Ordered 04/10/20 Ordered By: Crow Lock Referrals: Susan Espinal FNP [Primary Care Provider] - Discharge Diet: Regular Discharge Activity: Resume usual activity Patient Instructions: Constipation (ED) Activity Restrictions/Additional Instructions: Follow-up with medical provider as directed in 7-10 days. Take medications as prescribed. Take full dose of magnesium citrate tonight to help with constipation. Also sending you home with a prescription for MiraLAX for you to use daily as needed for constipation. Make sure you drink plenty of fluids and stay hydrated. Return to the ER or your medical provider if condition worsens. Please read and understand discharge instructions. If any questions, please ask. Coding Level of Care Code ED Waste Recycler for [place] Fwd Exam Comprehensive
--- NOTE | 2020-04-10 18:41 | CTR_ITS ---
PROCEDURE INFORMATION: Exam: CT Abdomen And Pelvis Without Contrast Exam date and time: 04/10/2020 6:53 PM Age: 64 years old Clinical indication: Abdominal pain; Prior surgery; Surgery type: RT nephrectomy, lithotripsy, hernia; Additional info: Lower abdominal pain TECHNIQUE: Imaging protocol: Computed tomography of the abdomen and pelvis without contrast. Radiation optimization: All CT scans at this facility use at least one of these dose optimization techniques: automated exposure control; mA and/or kV adjustment per patient size (includes targeted exams where dose is matched to clinical indication); or iterative reconstruction. COMPARISON: CR XR KUB [id number] 06/12/2019 3:48 PM RADIATION DOSE METRICS: Total DLP (mGy-cm): 453.91 FINDINGS: Mediastinal space: A small hiatal hernia is present. Liver: Unremarkable.No mass. Gallbladder and bile ducts: Normal. No calcified stones. No ductal dilation. Pancreas: Normal. No ductal dilation. Spleen: Normal. No splenomegaly. Adrenals: Normal. No mass. Kidneys and ureters: Postoperative changes of a right nephrectomy are noted. There is punctate left nephrolithiasis. No left hydronephrosis or obstructing calculus left ureter. Stomach and bowel: There is moderately excessive colonic stool content. There is no evidence of intestinal perforation or obstruction. There is no evidence of colitis/diverticulitis. Appendix: A normal appendix is identified. Intraperitoneal space: Unremarkable. No free air. No significant fluid collection. Vasculature: Unremarkable.No abdominal aortic aneurysm. Lymph nodes: Unremarkable.No enlarged lymph nodes. Urinary bladder: There is nonspecific bladder wall thickening. This may be related to incomplete distention. Reproductive: Uterus is enlarged and lobulated in contour with several calcified uterine fibroids. The ovaries/adnexa are unremarkable. Bones/joints: Unremarkable. No acute fracture. Soft tissues: Unremarkable. CT/CT abdomen pelvis con [id number] IMPRESSION: 1. No bowel thickening or inflammatory changes. No hydronephrosis left kidney. Postoperative right nephrectomy. 2. There is abundant colonic stool compatible with constipation. Radiation Dose CTDIVOL = (mGy): DLP = 453.91 (mGy-cm)
[2020-04-10 19:06] LABS: Basophils % 0.6 %; Eosinophils # 0.1 10^3/uL (0.0-0.8); Eosinophils % 1.3 %; Hematocrit 39.8 % (37.0-47.0); Lymphocytes # 1.1 10^3/uL (0.8-4.8); Lymphocytes % 20.7 %; Mean Corpuscular HGB Conc 32.7 g/dL (30.0-36.0); Mean Corpuscular Hemoglobin 32.6 pg (28.0-34.0); Mean Corpuscular Volume 99.7 fL (81-99); Mean Platelet Volume 8.1 fL (7.4-10.4); Monocytes # 0.6 10^3/uL (0.2-0.9); Monocytes % 10.2 %; Neutrophils # 3.63 10^3/uL (1.8-7.7); Nucleated Red Blood Cells % 0 %; Platelet Count 220 10^3/cmm (130-400); Red Blood Count 3.99 10^6/uL (4.1-5.3); Red Cell Distribution Width 12.6 % (12.1-15.1); White Blood Count 5.4 10^3/uL (4.0-10.0)
[2020-04-10 19:31] LABS: Alanine Aminotransferase 20 U/L (0-33); Albumin Level 4.3 g/dL (3.5-5.2); Alkaline Phosphatase 87 IU/L (35-105); Anion Gap 17.3 (5-19); Aspartate Amino Transferase 18 U/L (0-32); Blood Urea Nitrogen 25 mg/dL (8-23); Calcium 9.9 mg/dL (8.5-10.5); Carbon Dioxide 24 mmol/L (22-29); Chloride 97 mmol/L (98-107); Globulin 2.9 g/dL (1.3-4.6); Glomerular Filtration Rate 62.6 mL/min (90-130); Glucose 107 mg/dL (65-115); Lipase 52 U/L (13-60); Osmolality Calculated 283 mOsm/kg (285-295); Potassium 4.3 mmol/L (3.5-5.1); Sodium 134 mmol/L (136-145); Total Bilirubin 0.3 mg/dL (0.15-1.2); Total Protein 7.2 g/dL (6.6-8.7)
[2020-04-10 19:50] VITALS: RESP 18; O2SAT 97
[2020-04-10] MEDS: ondansetron 2 mg/ML SDV 2 mL 4 MG IVP (19:50)
[2020-04-10] MEDS: sodium chloride 0.9% 500 ML IV (19:50)
[2020-04-10] MEDS: morphine 4 mg/mL SDV 1 mL IVP (19:50)
[2020-04-10] MEDS: ropinirole 1 mg Tablet PO (20:40)
[2020-04-10 20:54] VITALS: PULSE 75; RESP 16; O2SAT 97
== END 2020-04-10 20:54 | disposition home or self-care (01) ==
PROVIDERS: Emergency Medicine; Emergency Provider Physician Assistant; PCP Nurse Practitioner Family
DX: K59.01 Slow transit constipation (principal); E78.5 Hyperlipidemia, unspecified; Z85.528 Personal history of other malignant neoplasm of kidney
CPT/HCPCS: 12345; 74176; 80053; 81001; 83690; 85025; 87086; 96361; 96374; 96375; 99283; J2270; J2405; J7040

== ENCOUNTER → 2020-04-15 16:04 | Outpatient (BNVA) | payer MEDICARE, MEDICAID, SELFPAY | PROVIDERS: PCP Nurse Practitioner Family; Visit Provider Nurse Practitioner Family | DX: N30.90 Cystitis, unspecified without hematuria (principal); R10.12 Left upper quadrant pain; R35.0 Frequency of micturition | CPT/HCPCS: 81003 ==

== ENCOUNTER → 2020-04-18 07:52 | Outpatient (BNVA) | payer MEDICARE, MEDICAID, SELFPAY | PROVIDERS: PCP Nurse Practitioner Family; Visit Provider Nurse Practitioner | DX: R41.83 Borderline intellectual functioning (principal); F33.2 Major depressive disorder, recurrent severe without psychotic features | CPT/HCPCS: 99213 ==

== ENCOUNTER → 2020-06-03 11:21 | Outpatient (BNVA) | payer MEDICARE, MEDICAID, SELFPAY | PROVIDERS: PCP Nurse Practitioner Family; Visit Provider Nurse Practitioner Family | DX: E87.1 Hypo-osmolality and hyponatremia (principal) | CPT/HCPCS: 80048 ==

== ENCOUNTER → 2020-06-20 08:46 | Outpatient (BNVA) | payer MEDICARE, MEDICAID, SELFPAY | PROVIDERS: PCP Nurse Practitioner Family; Visit Provider Nurse Practitioner | DX: F33.2 Major depressive disorder, recurrent severe without psychotic features (principal); R41.83 Borderline intellectual functioning | CPT/HCPCS: 99213 ==

== ENCOUNTER → 2020-08-22 08:30 | Outpatient (BNVA) | payer MEDICARE, MEDICAID, SELFPAY | PROVIDERS: PCP Nurse Practitioner Family; Visit Provider Nurse Practitioner | DX: F33.2 Major depressive disorder, recurrent severe without psychotic features (principal); R41.83 Borderline intellectual functioning | CPT/HCPCS: 99214 ==

== ENCOUNTER → 2020-10-17 12:33 | Outpatient (BNVA) | payer MEDICARE, MEDICAID, SELFPAY | PROVIDERS: PCP Nurse Practitioner Family; Visit Provider Nurse Practitioner | DX: F33.2 Major depressive disorder, recurrent severe without psychotic features (principal); R41.83 Borderline intellectual functioning | CPT/HCPCS: 99214 ==

== ENCOUNTER 2020-11-07 11:23 | Outpatient (CLI) | payer MEDICARE, MEDICAID, SELFPAY ==
--- NOTE | 2020-11-07 11:30 | MM_ITS ---
WS: [id number] Bilateral diagnostic digital mammogram, 11/07/2020 Clinical Data: R92.8 - Other abnormal and inconclusive findings on diagnostic imaging of breast Comparison: 10/11/2019, 09/17/2019, 10/24/2017, 09/28/2016, 04/14/2015, 01/29/2013, 09/18/2010, 05/21/2009. Findings: The right breast shows fibroglandular tissue. No right breast abnormalities are present. The left javier ast is smaller and has 2 large benign calcifications. There is retraction of the real with areolar th ickening thickening. No spiculated masses or clustered calcifications are seen. MM/[place] [id number] Impression: 1. Negative right breast. 2. Post therapeutic changes the left breast which remain the same. 3. Recommend annual mammograms. BIRADS: 2-Benign FOLLOW UP: 1 Year Follow-up The CAD quality checker was used.
== END 2020-11-07 11:24 | disposition home or self-care (01) ==
LOC: RADSHAW 11:27
PROVIDERS: PCP Nurse Practitioner Family; Visit Provider Nurse Practitioner Family
DX: R92.8 Other abnormal and inconclusive findings on diagnostic imaging of breast (principal)
CPT/HCPCS: 77066

== ENCOUNTER → 2020-11-10 11:46 | Outpatient (BNVA) | payer MEDICARE, MEDICAID, SELFPAY | PROVIDERS: PCP Nurse Practitioner Family; Visit Provider Family Medicine | DX: E78.5 Hyperlipidemia, unspecified (principal); G47.00 Insomnia, unspecified; K21.9 Gastro-esophageal reflux disease without esophagitis | CPT/HCPCS: 80053; 80061; 84443; 85025 ==

== ENCOUNTER → 2020-12-29 08:05 | Outpatient (BNVA) | payer MEDICARE, MEDICAID, SELFPAY | PROVIDERS: PCP Nurse Practitioner Family; Visit Provider Nurse Practitioner | DX: R41.83 Borderline intellectual functioning (principal); F33.2 Major depressive disorder, recurrent severe without psychotic features | CPT/HCPCS: 99214 ==

== ENCOUNTER 2021-06-16 09:19 | Outpatient (CLI) | payer MEDICARE, MEDICAID, SELFPAY ==
--- NOTE | 2021-06-16 09:15 | XR_ITS ---
WS: [id number] XR KUB [id number] REASON FOR EXAM: KIDNEY STONES FINDINGS: Previous right nephrectomy. No urinary tract calculi are identified. CT scan of 04/10/2020 demonstrates several sub-2 mm left intr arenal calculi. No free air or retroperitoneal air. Moderate stool within the colon bowel gas pattern otherwise unremarkable. Uterine fibroid calcifications within the pelvis. No focal bone abnormality. XR/XR KUB [id number] IMPRESSION: Previous right nephrectomy. No urinary tract calculi identified.
== END 2021-06-16 09:20 | disposition home or self-care (01) ==
LOC: RAD 09:22
PROVIDERS: PCP Nurse Practitioner Family; Visit Provider Nurse Practitioner Family
DX: N20.0 Calculus of kidney (principal); Z90.5 Acquired absence of kidney
CPT/HCPCS: 74018; 81003